=== PATIENT | female | born 1955 | race Caucasian/White ===

== ENCOUNTER → 2019-05-23 | Outpatient (CLI) | payer BC ==
[~2019-05-23] MED LIST: GADOTERATE 7.5 MMOL/15ML VIAL. IVP ONE
--- NOTE | 2019-05-24 08:40 | KCIC ---
BRAIN WO/W CONTRAST, NECK ORBIT FACE W/WO CONTRAST Date: 05/23/2019 11:45 AM Indication: Left eye ptosis. History of neurofibromatosis. Comparison: None. Technique: Multiplanar multisequence MRI of the brain and orbits was performed with and without intravenous contrast. 14 cc Dotarem contrast was administered intravenously during the exam. Findings: Asymmetric dilatation the left superior ophthalmic vein measuring up to 7 mm in diameter, with engorged vessels extending into the left eyelid. Symmetric cavernous sinus enhancement. The optic nerves are normal in size and signal intensity. The extraocular muscles are normal. Meckel's cave is normal. The carotid artery flow voids are normal. The optic chiasm is normal. The suprasellar cistern is normal. No acute infarct. No acute or chronic hemorrhage. The ventricles are normal in size and configuration without hydrocephalus. Minimal scattered FLAIR hyperintensities in the subcortical and periventricular deep white matter, a nonspecific finding, appropriate for patient age. The scalp and calvarium are normal. The pituitary and sella are normal. No Chiari malformation. The visualized upper cervical spine is normal. Right maxillary sinus mucous retention cyst. The mastoid air cells are clear. Normal flow voids within the vertebral, basilar, and internal carotid arteries indicating patency. 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 This is of indeterminate etiology, but considerations would include cerebral vascular malformations such as dural cavernous fistula or carotid cavernous fistula. No evidence of superior ophthalmic vein or cavernous sinus thrombosis. Ophthalmology referral is recommended. Electronically signed by: Bishnu Jeffery MD (05/24/2019 8:37 AM) [facility]
== END | disposition home or self-care (01) ==
LOC: KCIC MRI 11:30
PROVIDERS: ATTEND Psychiatry & Neurology Neurology with Special Qualifications in Child Neurology
DX: H02.402 Unspecified ptosis of left eyelid (principal); Q85.00 Neurofibromatosis, unspecified; J34.1 Cyst and mucocele of nose and nasal sinus
CPT/HCPCS: 70543; 70553; A9575

== ENCOUNTER 2021-12-29 10:18 | Emergency (ER) | payer MEDICARE ==
[~2021-12-29] VITALS: Ht 149.9 cm; Wt 68.1 kg
[2021-12-29 11:29] LABS: BASO % 1 % (0-3); EOS # 0.1 x10^3/uL (0.0-0.7); EOS % 1 % (0-3); HEMATOCRIT 43.4 % (36.0-47.0); HEMOGLOBIN 14.7 g/dL (12.0-15.5); LYMPH # 1.8 x10^3/uL (1.0-4.8); LYMPH % 35 % (24-48); MEAN CORPUSCULAR HEMOGLOBIN 29 pg (25-35); MEAN CORPUSCULAR HGB CONC 34 g/dL (31-37); MEAN CORPUSCULAR VOLUME 86 fL (79-100); MONO # 0.5 x10^3/uL (0.0-1.1); MONO % 9 % (0-9); NEUT # 2.8 x10^3/uL (1.8-7.7); NEUT % 54 % (31-73); PLATELET COUNT 268 x10^3/uL (140-400); RED BLOOD COUNT 5.04 x10^6/uL (3.50-5.40); RED CELL DISTRIBUTION WIDTH 13.5 % (11.5-14.5); WHITE BLOOD COUNT 5.3 x10^3/uL (4.0-11.0)
--- NOTE | 2021-12-29 11:34 | RAD ---
AP chest. HISTORY: Dyspnea on exertion AP view was taken of the chest. There is thoracolumbar scoliosis. There is a Hinton william. Lungs ar e free of infiltrates. Heart is normal in size. There is no effusion. IMPRESSION: 1. Scoliosis with a Hinton william. 2. No acute infiltrates. Electronically signed by: Tang Weldon MD (12/29/2021 11:32 AM) [facility]
[2021-12-29 11:36] LABS: PROTHROMBIN TIME PATIENT 37.5 SEC (11.7-14.0)
[2021-12-29 11:42] LABS: CALCIUM 8.8 mg/dL (8.5-10.1); CREATININE 0.8 mg/dL (0.6-1.0); POTASSIUM 3.7 mmol/L (3.5-5.1)
[2021-12-29 11:48] LABS: ALBUMIN 3.6 g/dL (3.4-5.0); ALBUMIN/GLOBULIN RATIO 0.9 (1.0-1.7); TOTAL BILIRUBIN 0.4 mg/dL (0.2-1.0); TOTAL PROTEIN 7.4 g/dL (6.4-8.2)
[2021-12-29 12:00] LABS: INFLUENZA A PATIENT NEGATIVE (NEGATIVE); INFLUENZA B PATIENT NEGATIVE (NEGATIVE)
[2021-12-29 14:29] VITALS: BP 121/80
--- NOTE | 2021-12-29 14:33 | PHYS DOC ---
Past Medical History Additional Past Medical Histor: PE'S Past Surgical History: No Surgical History Smoking Status: Never Smoker Alcohol Use: None General Adult EDM: Chief Complaint: SHORTNESS OF BREATH HPI: HPI: Patient is a 66-year-old female presents to the emergency department with chief complaint of dyspnea on exertion for the past week and a half. Patient reports she was diagnosed with influenza A last Tuesday, and reports shortness of breath when she moves around only. Patient denies fever or chills, states she does have a history of bilateral pulmonary embolisms and abdominal embolisms and lower extremity embolisms from years past and is currently on Coumadin therapy, patient reports her primary care physician had a CT angiography of her chest yesterday at diagnostic imaging that is negative for pulmonary emboli. Patient also reports taking a 7-day regimen of an antibiotic that she finished 2 days ago. Patient reports being vaccinated for the seasonal flu virus and the COVID- 19 virus. Patient reports her only home medications are warfarin, Ambien, calcium, and a multivitamin. Patient denies chest pains, chest or nasal congestion, fever or chills at home, syncopal or near syncopal episodes, denies dizziness, denies diaphoretic episodes, denies nausea vomiting or diarrhea, denies abdominal discomfort, denies increased urinary frequency, urinary pressure, or other dysuria. Patient denies other physical complaints or physical concerns. Patient does report when she is at rest she feels fine, it is just when she gets up to walk around when she becomes short of breath. Review of Systems: Review of Systems: 14 body systems of review of systems have been reviewed. See HPI for pertinent positives and negative responses, otherwise all other systems are negative, nonpertinent or noncontributory. Constitutional: Negative except as outlined in HPI above. Skin: Negative except as outlined in HPI above. Eyes: Negative except as outlined in HPI above. HENT: Negative except as outlined in HPI above. Respiratory: Negative except as outlined in HPI above. Cardiovascular: Negative except as outlined in HPI above. GI: Negative except as outlined in HPI above. : Negative except as outlined in HPI above. Musculoskeletal: Negative except as outlined in HPI above. Integument: Negative except as outlined in HPI above. Neurologic: Negative except as outlined in HPI above. Endocrine: Negative except as outlined in HPI above. Lymphatic: Negative except as outlined in HPI above. Psychiatric: Negative except as outlined in HPI above. Heart Score: C/O Chest Pain: No Risk Factors: Risk Factors: DM, Current or recent (<one month) smoker, HTN, HLP, family history of CAD, obesity. Risk Scores: Score 0 - 3: 2.5% MACE over next 6 weeks - Discharge Home Score 4 - 6: 20.3% MACE over next 6 weeks - Admit for Clinical Observation Score 7 - 10: 72.7% MACE over next 6 weeks - Early Invasive Strategies Allergies: Allergies: Allergies Coded Allergies Type Severity Reaction Last Updated Verified No Known Drug Allergies 05/23/19 No Physical Exam: PE: Constitutional: Well developed, well nourished, no acute distress, non-toxic appearance. 66-year-old female in no apparent distress. HENT: Normocephalic, atraumatic. History of ptosis to the left eye lid Eyes: Conjunctiva normal, no discharge. Neck: Normal range of motion, no stridor. Cardiovascular: No cyanosis appreciated, distal cap refill less than 2 seconds. Regular rate and rhythm, heart sounds S1-S2 to auscultation Lungs & Thorax: Patient is in no respiratory distress, no audible adventitious lung sounds appreciated. Normal work of breathing, lung sounds clear to auscultation all lung campbell. Abdomen: Nontender, no abnormalities noted. Skin: Warm, dry, no erythema, no rash. Back: No tenderness, no deformities. Extremities: No tenderness, no cyanosis, no clubbing, ROM intact, no edema. Neurologic: Alert and oriented X 3, normal motor function, normal sensory function, no focal deficits noted. Psychologic: Affect normal, judgement normal, mood normal. Current Patient Data: Labs: Laboratory Tests Test 12/29/21 10:30 12/29/21 11:15 White Blood Count 5.3 x10^3/uL (4.0-11.0) Red Blood Count 5.04 x10^6/uL (3.50-5.40) Hemoglobin 14.7 g/dL (12.0-15.5) Hematocrit 43.4 % (36.0-47.0) Mean Corpuscular Volume 86 fL (79-100) Mean Corpuscular Hemoglobin 29 pg (25-35) Mean Corpuscular Hemoglobin Concent 34 g/dL (31-37) Red Cell Distribution Width 13.5 % (11.5-14.5) Platelet Count 268 x10^3/uL (140-400) Neutrophils (%) (Auto) 54 % (31-73) Lymphocytes (%) (Auto) 35 % (24-48) Monocytes (%) (Auto) 9 % (0-9) Eosinophils (%) (Auto) 1 % (0-3) Basophils (%) (Auto) 1 % (0-3) Neutrophils # (Auto) 2.8 x10^3/uL (1.8-7.7) Lymphocytes # (Auto) 1.8 x10^3/uL (1.0-4.8) Monocytes # (Auto) 0.5 x10^3/uL (0.0-1.1) Eosinophils # (Auto) 0.1 x10^3/uL (0.0-0.7) Basophils # (Auto) 0.0 x10^3/uL (0.0-0.2) Prothrombin Time 37.5 SEC (11.7-14.0) H Prothrombin Time INR 3.9 (0.8-1.1) H Sodium Level 139 mmol/L (136-145) Potassium Level 3.7 mmol/L (3.5-5.1) Chloride Level 104 mmol/L (98-107) Carbon Dioxide Level 26 mmol/L (21-32) Anion Gap 9 (6-14) Blood Urea Nitrogen 13 mg/dL (7-20) Creatinine 0.8 mg/dL (0.6-1.0) Estimated GFR (Cockcroft-Gault) 72.0 BUN/Creatinine Ratio 16 (6-20) Glucose Level 92 mg/dL (70-99) Calcium Level 8.8 mg/dL (8.5-10.1) Total Bilirubin 0.4 mg/dL (0.2-1.0) Aspartate Amino Transferase (AST) 18 U/L (15-37) Alanine Aminotransferase (ALT) 22 U/L (14-59) Alkaline Phosphatase 59 U/L (46-116) Troponin I High Sensitivity 6 ng/L (4-50) Total Protein 7.4 g/dL (6.4-8.2) Albumin 3.6 g/dL (3.4-5.0) Albumin/Globulin Ratio 0.9 (1.0-1.7) L Lipase 125 U/L (73-393) Influenza Type A Antigen Negative (NEGATIVE) Influenza Type B Antigen Negative (NEGATIVE) SARS-CoV-2 Antigen (Rapid) Negative (NEGATIVE) Laboratory Tests 12/29/21 10:30 Laboratory Tests 12/29/21 10:30 Vital Signs: Vital Signs Date Time Temp Pulse Resp B/P (MAP) Pulse Ox O2 Delivery O2 Flow Rate FiO2 12/29/21 12:29 72 14 134/76 (95) 98 12/29/21 10:23 97.7 Room Air 97.7 EKG: EKG: EKG performed at 1031 by ED nursing staff shows a normal sinus rhythm without ectopy, heart rate is 70 bpm, IL interval point 124, QTc interval 0.424, no acute STEMI, no ACS, no acute ischemia appreciated, EKG interpreted by ED attending physician Dr. Barnes. Radiology/Procedures: Radiology/Procedures: REASON: Dyspnea on exertion PROCEDURE: CHEST AP ONLY AP chest. HISTORY: Dyspnea on exertion AP view was taken of the chest. There is thoracolumbar scoliosis. There is a Hinton william. Lungs are free of infiltrates. Heart is normal in size. There is no effusion. IMPRESSION: 1. Scoliosis with a Hinton william. 2. No acute infiltrates. Electronically signed by: Tang Weldon MD (12/29/2021 11:32 AM) [facility] Course & Med Decision Making: Course & Med Decision Making Pertinent Labs and Imaging studies reviewed. (See chart for details) 66-year-old female, vital signs reviewed, presents to the emergency department concerning dyspnea on exertion for the past week and a half. Patient's physical examination is unremarkable, related to patient's history of pulmonary emboli, even with reported negative CT angio chest from yesterday, will order chest x- ray, EKG, high-sensitivity troponin I, CBC, CMP, lipase. Cardiac monitoring, pulse ox monitoring, NIBP monitoring Patient's labs are unremarkable, EKG is unremarkable, chest x-ray is nonconcerning, will order 3-hour serial troponin for comparison. Upon reevaluation of the patient, patient remains nontoxic in appearance, in no distress, vital signs remained stable. Discussed 3-hour serial troponin draw, patient is amenable to ED planning Repeat serial troponin negative, discussed findings with patient, will order albuterol I, prednisone regimen, strict follow-up with primary care for ongoing symptoms, return to ER precautions and concerns were reviewed, patient gave verbal understanding of and is amenable to ED discharge planning Discussed with the patient all findings and diagnostic testing as well as the need to follow-up with their primary care provider for further evaluation and treatment or return to the ED if any new or worsening symptoms. Strict return precautions were also discussed at length, the patient voiced understanding and agreement with the discharge planning. The patient was nontoxic in appearance, in no apparent distress, and hemodynamically stable at the time of disposition. Dragon Disclaimer: [employer] Disclaimer: This electronic medical record was generated, in whole or in part, using a voice recognition dictation system. Departure Departure Impression: Primary Impression: Dyspnea on exertion Disposition: HOME / SELF CARE / HOMELESS Condition: GOOD Referrals: ISABELLA HENLEY MD (PCP) Additional Instructions: You were seen today in the emergency department for ongoing shortness of breath after being diagnosed with influenza A a week and a half ago. Your chest x-ray is reassuring that it did not show any signs of lung disease or heart disease. Your lab work is reassuring that it did not show any concerning signs of infectious process or electrolyte imbalance. Your EKG was within normal limits, serial high-sensitivity troponin I labs did not show any concerning signs of heart disease or stress on your heart. As we discussed, I am starting you on a short regimen of prednisone that you will take over the next 3 days, I am also prescribing you an albuterol inhaler to use for returning symptoms of shortness of breath. Please call your primary care physician tomorrow to let them know of your emergency department stay today and to let them know of the new medications that you are taking. Thank you for visiting our Emergency Department. It was a pleasure taking care of you today in the emergency department and we appreciate you trusting us with your care. If any additional problems come up don't hesitate to return to visit us. Please follow up with your primary care provider so they can plan additional care if needed and know about the problem that you had. If symptoms worsen come back to the Emergency Department. Any concerning symptoms that start such as chest pain, shortness of air, weakness or numbness on one side of the body, running high fevers or any other concerning symptoms return to the ER. EMERGENCY DEPARTMENT GENERAL DISCHARGE INSTRUCTIONS Thank you for coming to [facility] Emergency Department (ED) today and trusting us with you care. We trust that you had a positive experience in our Emergency Department. If you wish to speak to the department management, you may call the Director at [phone]. YOUR FOLLOW UP INSTRUCTIONS ARE FOLLOWS: 1. Do you have a private Doctor? If you do not have a private doctor, please ask for a resource list of physicians or clinics that may be able to assist you with follow up care. 2. The Emergency Physicain has interpreted your x-rays. The X-Ray specialist will also review them. If there is a change in the findings, you will be notified in 48 hours when at all possible. 3. A lab test or culture has been done, your results will be reviewed and you will be notified if you need a change in treatment. ADDITIONAL INSTRUCTIONS AND INFORMATION: 1. Your care today has been supervised by a physician who is specially trained in emergency care. Many problems require more than one evaluation for a complete diagnosis and treatment. We recommend that you schedule your follow up appointment as recommended to ensure complete treatment of you illness or injury. If you are unable to obtain follow up care and continue to have a problem, or if your condition worsens, we recommend that you return to the ED. 2. We are not able to safely determine your condition over the phone nor are we able to give sound medical advice over the phone. For these safety reasons, if you call for medical advice we will ask you to come to the ED for further evaluation. 3. If you have any questions regarding these discharge instructions please call the ED at [phone]. SAFETY INFORMATION: In the interest of safety, wellness, and injury prevention; we encourage you to wear your sealbelt, if you smoke; quite smoking, and we encourage family to use a protective helmet for bicycling and other sporting events that present an increased risk for head injury. IF YOUR SYMPTOMS WORSEN OR NEW SYMPTOMS DEVELOP, OR YOU HAVE CONCERNS ABOUT YOUR CONDITION; OR IF YOUR CONDITION WORSENS WHILE YOU ARE WAITING FOR YOUR FOLLOW UP APPOINTMENT; EITHER CONTACT YOUR PRIMARY CARE DOCTOR, THE PHYSICIAN WHOSE NAME AND NUMBER YOU WERE GIVEN, OR RETURN TO THE ED IMMEDIATELY. Scripts Albuterol Sulfate (Proair Hfa) 8.5 Gm Hfa.aer.ad 2 PUFF IH PRN Q4-6HRS PRN for wheezing for 21 Days, #1 INHALER 0 Refills Prov: MARICHUY MARSH APRN 12/29/21 Prednisone (PREDNISONE) 20 Mg Tablet 2 TAB PO DAILY for 3 Days, #6 TAB 0 Refills Take 40 mg each day for the next 3 days Prov: MARICHUY MARSH APRN 12/29/21 MARICHUY MARSH APRN Dec 29, 2021 14:32
[2021-12-29] MEDS ORDERED: ALBU2.5V8 IH (15:43)
[2021-12-29] MEDS ORDERED: PRED20TA PO (15:43)
--- NOTE | 2021-12-29 16:05 | EKG ---
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
--- NOTE | 2021-12-30 16:14 | NUR ---
IP: Attempted to contact pt concerning covid results. No answer, left a voicemail to return the call.
== END 2021-12-29 15:52 | disposition home or self-care (01) ==
LOC: ER 10:18
DX: R06.02 Shortness of breath (principal); Z20.822 Contact with and (suspected) exposure to COVID-19
CPT/HCPCS: 36415; 71045; 80053; 83690; 84484; 85025; 85610; 87428; 93005; 96360; 99285; C9803; U0003